=== PATIENT | male | born 1980 | race Caucasian/White ===

== ENCOUNTER 2020-01-18 19:41 | Emergency (ER) | payer BC ==
[~2020-01-18] VITALS: Ht 167.6 cm; Wt 67.1 kg
[2020-01-18] MEDS ORDERED: ASPIRIN 81 MG TABLET CHEW ONE (20:29)
[2020-01-18] MEDS ORDERED: ASPIRIN 81 MG TABLET CHEW PO ONE (20:30)
[2020-01-18 20:48] LABS: ALANINE AMINOTRANSFERASE 24 U/L (12-78); ALBUMIN 3.9 g/dL (3.4-5.0); ANION GAP 6 mmol/L (5-15); CALCIUM 9.1 mg/dL (8.5-10.1); CHLORIDE 107 mmol/L (98-107); CREATININE 1.24 mg/dL (0.7-1.3)
[2020-01-18 20:50] LABS: BASOPHILS # (AUTO) 0.03 x10^3/uL (0-0.1); BASOPHILS % (AUTO) 0 % (0-1); EOSINOPHILS # (AUTO) 0.13 x10^3/uL (0-0.4); EOSINOPHILS % (AUTO) 1 % (1-7); LYMPHOCYTES % (AUTO) 25 % (22-44); MD NO; MEAN CORPUSCULAR HEMOGLOBIN 29.6 pg (27.5-34.5); MEAN CORPUSCULAR VOLUME 89.7 fL (81-97); MEAN PLATELET VOLUME 8.7 fL (7.4-10.4); MONOCYTES # (AUTO) 0.49 x10^3/uL (0.2-0.8); MONOCYTES % (AUTO) 6 % (2-9); NEUTROPHILS # (AUTO) 6.06 x10^3/uL (1.8-6.8); NEUTROPHILS % (AUTO) 68 % (42-75); PLATELET COUNT 232 x10^3/uL (130-400); RED BLOOD COUNT 5.06 x10^6/uL (4.38-5.82)
[2020-01-18 20:53] LABS: ALKALINE PHOSPHATASE 92 U/L (45-117); TOTAL PROTEIN 7.1 g/dL (6.4-8.2); TROPONIN I < 0.015 ng/mL (0.000-0.045)
--- NOTE | 2020-01-18 20:55 | NUR ---
PT MEDICATED PER MAR. AWAITING PT D/C PAPERWORK AT THIS TIME.
[2020-01-18 21:06] LABS: BILIRUBIN,TOTAL < 0.1 mg/dL (0.2-1.0)
[2020-01-18 21:35] VITALS: BP 149/88
== END 2020-01-18 21:37 | disposition home or self-care (01) ==
LOC: ED 21:27
DX: R06.00 Dyspnea, unspecified (principal); R51 Headache; Z87.891 Personal history of nicotine dependence
CPT/HCPCS: 36415; 71045; 80053; 83880; 84484; 85025; 93005; 99285